=== PATIENT | male | born 1955 | race Caucasian/White ===

== ENCOUNTER 2018-07-26 10:13 | Outpatient (CLI) | payer OTHER, SELFPAY ==
--- NOTE | 2018-07-26 09:31 | DI.RAD_ITS ---
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 There is no evidence of a fracture or dislocation.
== END 2018-07-26 10:33 ==
PROVIDERS: PCP Nurse Practitioner Family; Visit Provider Orthopaedic Surgery
DX: M25.512 Pain in left shoulder (principal); M19.012 Primary osteoarthritis, left shoulder
CPT/HCPCS: 73030

== ENCOUNTER 2018-11-01 09:50 | Outpatient (REF) | payer MEDICARE, OTHER, SELFPAY ==
[2018-11-01 13:34] LABS: ALT 53 U/L (12-78); AST 39 U/L (15-37); Albumin 4.5 g/dL (3.4-5.0); Alkaline Phosphatase 96 U/L (46-116); Anion Gap 8.5 mmol/L (3-11); BUN 16 mg/dL (7-18); Bilirubin, Total 0.4 mg/dL (0.2-1.0); CO2 27.5 mmol/L (21.0-32.0); CREATININE 0.97 mg/dL (0.70-1.30); Calcium 9.3 mg/dL (8.5-10.1); Chloride 104 mmol/L (98-107); Glucose 95 mg/dL (70-100); Potassium 4.8 mmol/L (3.5-5.1); Sodium 140 mmol/L (136-145); Total Protein 8.2 g/dL (6.4-8.2)
[2018-11-02 09:09] LABS: PSA, Screening 1.5 ng/ml (0-4.5)
== END 2018-11-01 10:10 ==
LOC: NCHCN 09:50
PROVIDERS: PCP Nurse Practitioner Family; Visit Provider Nurse Practitioner Family
DX: Z00.00 Encounter for general adult medical examination without abnormal findings (principal); E78.5 Hyperlipidemia, unspecified; I10 Essential (primary) hypertension; F32.9 Major depressive disorder, single episode, unspecified; R60.0 Localized edema; Z12.5 Encounter for screening for malignant neoplasm of prostate; Z80.42 Family history of malignant neoplasm of prostate; E66.9 Obesity, unspecified
CPT/HCPCS: 80053; 84153

== ENCOUNTER 2019-03-05 10:11 | Outpatient (REF) | payer MEDICARE, OTHER, SELFPAY ==
[2019-03-05 13:33] LABS: ALT 48 U/L (12-78); AST 32 U/L (15-37); Albumin 4.2 g/dL (3.4-5.0); Alkaline Phosphatase 87 U/L (46-116); Bilirubin, Direct 0.21 mg/dL (0.00-0.20); Bilirubin, Total 0.9 mg/dL (0.2-1.0); Total Protein 7.2 g/dL (6.4-8.2)
== END 2019-03-05 10:31 ==
LOC: NCHCN 10:11
PROVIDERS: PCP Nurse Practitioner Family; Visit Provider Nurse Practitioner Family
DX: R60.0 Localized edema (principal); R10.13 Epigastric pain; E78.5 Hyperlipidemia, unspecified; I10 Essential (primary) hypertension; F32.9 Major depressive disorder, single episode, unspecified
CPT/HCPCS: 80076

== ENCOUNTER 2019-11-05 12:29 | Outpatient (REF) | payer MEDICARE, SELFPAY ==
[2019-11-05 13:42] LABS: ALT 52 U/L (16-63); AST 42 U/L (15-37); Albumin 4.5 g/dL (3.4-5.0); Alkaline Phosphatase 85 U/L (46-116); BUN 17 mg/dL (7-18); Bilirubin, Total 0.9 mg/dL (0.2-1.0); CREATININE 0.92 mg/dL (0.70-1.30); Calcium 9.3 mg/dL (8.5-10.1); Chloride 103 mmol/L (98-107); Glucose 100 mg/dL (74-106); Potassium 4.5 mmol/L (3.5-5.1); Sodium 143 mmol/L (136-145); Total Protein 7.7 g/dL (6.4-8.2)
[2019-11-06 14:03] LABS: PSA, Screening 1.5 ng/mL (0.0-4.5)
== END 2019-11-05 12:49 ==
LOC: NCHCN 12:29
PROVIDERS: PCP Nurse Practitioner Family; Visit Provider Nurse Practitioner Family
DX: E78.5 Hyperlipidemia, unspecified (principal); I10 Essential (primary) hypertension; Z12.5 Encounter for screening for malignant neoplasm of prostate; Z80.42 Family history of malignant neoplasm of prostate
CPT/HCPCS: 80053; 84153